=== PATIENT | female | born 1955 | race Asian ===

== ENCOUNTER 2022-09-12 23:45 | Inpatient (IN) | payer MEDICAID ==
[~2022-09-12] VITALS: Ht 144.8 cm; Wt 37.3 kg
[2022-09-13] MEDS ORDERED: IPRATROPIUM BROMIDE (0.02%) 0.5MG/2.5ML NEB HHN STA (00:03)
[2022-09-13] MEDS ORDERED: METHYLPREDNISOLONE SOD SUCC 125 MG/2 ML VIAL IV STA (00:03)
[2022-09-13] MEDS ORDERED: FUROSEMIDE 40MG/4ML VIAL IV ONE (00:15)
[2022-09-13] MEDS ORDERED: LORAZEPAM 2MG/ML CPJ IV ONE (00:15)
[2022-09-13] MEDS ORDERED: MAGNESIUM 2 G PREMIX 50 ML IV ONE (00:15)
[2022-09-13] MEDS: ALBUTEROL (0.083%) 2.5MG/3ML NEB HHN SCH (00:22)
[2022-09-13 00:34] LABS: BASOPHILS % 0.7 % (0.0-2.0); EOSINOPHILS % 5.8 % (0.0-5.0); HEMATOCRIT. 43.6 % (42.0-52.0); HEMOGLOBIN. 14.1 g/dL (14.0-18.0); LYMPHOCYTES % 46.7 % (20.0-50.0); MEAN CORPUSCULAR HEMOGLOBIN 30.4 pg (28.0-32.0); MEAN CORPUSCULAR VOLUME 94.4 fL (80.0-94.0); MEAN PLATELET VOLUME 9.2 fl (7.4-10.4); MONOCYTES % 6.6 % (2.0-8.0); NEUTROPHILS % 40.2 % (40.0-76.0); PLATELET 288 x1000/uL (130-400); RED BLOOD CELL COUNT 4.62 mill/uL (4.7-6.1); RED CELL DISTRIBUTION WIDTH 14.2 % (11.6-14.6)
[2022-09-13 00:47] LABS: BG BASE EXCESS -10.2 mmol/L (-2.0-2.0); BG CARBOXYHEMOGLOBIN 0.4 % (0.5-1.5); BG FRACTION INSPIRED OXYGEN 100; BG HCO3 ACT 18.5 mmol/L (22.0-26.0); BG METHEMOGLOBIN 0.5 % (0.0-1.5); BG OXYGEN SATURATION 93.9 % (92.0-98.5); BG OXYHEMOGLOBIN 93.1 % (94.0-97.0); BG PCO2 51.9 mmHg (35.0-45.0); BG PH 7.169 (7.350-7.450); BG PO2 83.8 mmHg (75.0-100.0); BG SAMPLE SITE RIGHT BRACHIAL; BG TOTAL HEMOGLOBIN 13.5 g/dL (12.0-18.0); BG TOTAL RESPIRATORY RATE 35 b/min; BG VENT MODE MASK - BIPAP
[2022-09-13] MEDS ORDERED: AZITHROMYCIN 500MG/250ML 250 ML IV ONE (01:00)
[2022-09-13] MEDS ORDERED: CEFTRIAXONE 1 G PREMIX 50 ML IV ONE (01:00)
[2022-09-13 01:57] LABS: CHLORIDE 110 mEq/L (98-107)
[2022-09-13] MEDS ORDERED: ENALAPRIL 2.5MG/2ML VIAL 2ML IV NR (05:30)
[2022-09-13] MEDS ORDERED: ENALAPRIL 1.25MG/ML VIAL 1ML IV NR (06:00)
[2022-09-13] MEDS ORDERED: HYDRALAZINE 20MG/ML VIAL IV SCH ×2 (08:00→08:15)
[2022-09-13] MEDS ORDERED: AMLODIPINE 10MG TABLET PO SCH (09:45)
[2022-09-13] MEDS ORDERED: ONDANSETRON HCL 4MG/2ML INJ IV PRN (09:45)
[2022-09-13] MEDS: METHYLPREDNISOLONE SOD SUCC 40 MG/ML VIAL IV SCH ×3 (10:56→21:38)
[2022-09-13] MEDS: IPRATROPIUM/ALBUTEROL 0.5-3(2.5)MG/3ML NEB HHN SCH ×2 (12:00→20:56)
[2022-09-13] MEDS ORDERED: NITROGLYCERIN 50MG PREMIX 250 ML IV PRN (12:15)
[2022-09-13] MEDS ORDERED: HYDRALAZINE HCL 100MG TABLET PO SCH (14:00)
[2022-09-13] MEDS: SPIRONOLACTONE 25MG TABLET PO SCH (14:19)
[2022-09-13] MEDS: ACETAMINOPHEN 325MG TABLET PO PRN (15:32)
[2022-09-13 17:52] VITALS: BP 129/28
[2022-09-13 17:54] VITALS: BP 129/28
[2022-09-13] MEDS: FUROSEMIDE 40MG/4ML VIAL IVP SCH (18:00)
[2022-09-13 20:00] VITALS: BP 130/82
[2022-09-13] MEDS: FAMOTIDINE 20MG TABLET PO SCH (21:38)
[2022-09-13] MEDS: AZITHROMYCIN 500 MG TABLET PO SCH (21:38)
[2022-09-13] MEDS: CEFTRIAXONE 1,000 MG in DEXTROSE 5% WATER 50 ML IV SCH (21:41)
[2022-09-13] MEDS ORDERED: MOME17SP11 INH (22:36)
[2022-09-13] MEDS ORDERED: OMEP40CA20 PO (22:36)
[2022-09-13] MEDS ORDERED: MONT-39 PO (22:36)
[2022-09-13] MEDS ORDERED: ALBUTEROL (22:36)
[2022-09-13] MEDS ORDERED: METO-539 PO (22:36)
[2022-09-13] MEDS ORDERED: LISI40TA13 PO (22:36)
[2022-09-13] MEDS ORDERED: LORA10TA7 PO (22:36)
[2022-09-13] MEDS ORDERED: CETI10TA6 PO (22:36)
[2022-09-13] MEDS ORDERED: BENZ100C86 PO (22:36)
[2022-09-13] MEDS ORDERED: LOSA100T32 PO (22:36)
[2022-09-13] MEDS ORDERED: ATOR20TA65 PO (22:36)
[2022-09-14] VITALS: BP 133/78
[2022-09-14] MEDS: IPRATROPIUM/ALBUTEROL 0.5-3(2.5)MG/3ML NEB HHN SCH ×6 (00:51→22:26)
[2022-09-14 04:00] VITALS: BP 134/75
[2022-09-14 06:06] LABS: HEMATOCRIT. 35.7 % (36.0-48.0); HEMOGLOBIN. 11.7 g/dL (12.0-16.0); MEAN CORPUSCULAR HEMOGLOBIN 29.8 pg (28.0-32.0); MEAN PLATELET VOLUME 9.1 fl (7.4-10.4); PLATELET 252 x1000/uL (130-400); RED BLOOD CELL COUNT 3.92 mill/uL (4.2-5.4); RED CELL DISTRIBUTION WIDTH 13.9 % (11.6-14.6)
[2022-09-14] MEDS: METHYLPREDNISOLONE SOD SUCC 40 MG/ML VIAL IV SCH ×3 (06:17→21:13)
[2022-09-14] MEDS: FUROSEMIDE 40MG/4ML VIAL IVP SCH (06:18)
[2022-09-14 08:00] VITALS: BP 122/68
[2022-09-14 08:59] LABS: CHLORIDE 105 mEq/L (98-107)
[2022-09-14 09:06] LABS: PHOSPHORUS 5.7 mg/dL (2.5-4.9)
[2022-09-14] MEDS: SPIRONOLACTONE 25MG TABLET PO SCH (09:06)
[2022-09-14 09:07] LABS: BG BASE EXCESS -4.5 mmol/L (-2.0-2.0); BG CARBOXYHEMOGLOBIN 0.9 % (0.5-1.5); BG DEOXYHEMOGLOBIN 2.2 % (0.0-5.0); BG FRACTION INSPIRED OXYGEN 32; BG HCO3 ACT 18.4 mmol/L (22.0-26.0); BG METHEMOGLOBIN 0.4 % (0.0-1.5); BG OXYGEN SATURATION 97.8 % (92.0-98.5); BG OXYHEMOGLOBIN 96.5 % (94.0-97.0); BG PCO2 28.3 mmHg (35.0-45.0); BG PH 7.432 (7.350-7.450); BG PO2 94.7 mmHg (75.0-100.0); BG SAMPLE SITE RIGHT RADIAL; BG TOTAL HEMOGLOBIN 12.9 g/dL (12.0-18.0); BG VENT MODE NASAL CANNULA
[2022-09-14 12:00] VITALS: BP 116/76
[2022-09-14 13:40] LABS: PLATELET ESTIMATE NORMAL
[2022-09-14 16:00] VITALS: BP 139/89
[2022-09-14 20:00] VITALS: BP 133/83
[2022-09-14] MEDS: GUAIFENESIN 600MG ER TABLET PO SCH (21:08)
[2022-09-14] MEDS: AZITHROMYCIN 500 MG TABLET PO SCH (21:08)
[2022-09-14] MEDS: FAMOTIDINE 20MG TABLET PO SCH (21:08)
[2022-09-14] MEDS: ACETAMINOPHEN 325MG TABLET PO PRN (21:09)
[2022-09-14] MEDS: CEFTRIAXONE 1,000 MG in DEXTROSE 5% WATER 50 ML IV SCH (21:13)
[2022-09-15] VITALS: BP 142/84
[2022-09-15] MEDS: IPRATROPIUM/ALBUTEROL 0.5-3(2.5)MG/3ML NEB HHN SCH ×5 (02:03→21:13)
[2022-09-15 04:00] VITALS: BP 138/84
[2022-09-15] MEDS: METHYLPREDNISOLONE SOD SUCC 40 MG/ML VIAL IV SCH (05:51)
[2022-09-15 06:49] LABS: HEMATOCRIT 37.8 % (36.0-48.0); HEMOGLOBIN 12.3 g/dL (12.0-16.0); MEAN CORPUSCULAR HEMOGLOBIN 29.6 pg (28.0-32.0); MEAN CORPUSCULAR VOLUME 91.1 fL (81.0-99.0); PLATELET 265 x1000/uL (130-400); RED BLOOD CELL COUNT 4.15 mill/uL (4.2-5.4); RED CELL DISTRIBUTION WIDTH 14.5 % (11.6-14.6)
[2022-09-15 08:00] VITALS: BP 137/86
[2022-09-15] MEDS: GUAIFENESIN 600MG ER TABLET PO SCH ×2 (08:31→20:10)
[2022-09-15] MEDS: SPIRONOLACTONE 25MG TABLET PO SCH (08:31)
[2022-09-15] MEDS ORDERED: FUROSEMIDE 20MG/2ML VIAL IVP SCH (09:00)
[2022-09-15 09:35] LABS: CHLORIDE 107 mEq/L (98-107); HDL CHOLESTEROL 59 mg/dL (40-59); LDL CHOLESTEROL 112 mg/dL (5-100); PHOSPHORUS 5.1 mg/dL (2.5-4.9)
[2022-09-15 12:00] VITALS: BP 125/76
[2022-09-15 16:00] VITALS: BP 124/83
[2022-09-15 20:00] VITALS: BP 146/77
[2022-09-15] MEDS ORDERED: PREDNISONE 20MG TABLET PO SCH ×2 (20:00)
[2022-09-15] MEDS: AZITHROMYCIN 500 MG TABLET PO SCH (20:09)
[2022-09-15] MEDS: FAMOTIDINE 20MG TABLET PO SCH (20:09)
[2022-09-15] MEDS: CEFTRIAXONE 1,000 MG in DEXTROSE 5% WATER 50 ML IV SCH (20:11)
[2022-09-16] VITALS: BP 118/76
[2022-09-16] MEDS: IPRATROPIUM/ALBUTEROL 0.5-3(2.5)MG/3ML NEB HHN SCH ×4 (01:28→21:45)
[2022-09-16] MEDS ORDERED: PREDNISONE 20MG TABLET PO SCH ×2 (02:00→08:00)
[2022-09-16 04:00] VITALS: BP 134/75
[2022-09-16 06:56] LABS: HEMATOCRIT 36.2 % (36.0-48.0); HEMOGLOBIN 11.8 g/dL (12.0-16.0); MEAN CORPUSCULAR VOLUME 91.6 fL (81.0-99.0); PLATELET 241 x1000/uL (130-400); RED BLOOD CELL COUNT 3.95 mill/uL (4.2-5.4); RED CELL DISTRIBUTION WIDTH 14.2 % (11.6-14.6)
[2022-09-16 07:10] LABS: CHLORIDE 105 mEq/L (98-107)
[2022-09-16 07:54] VITALS: BP 121/78
[2022-09-16] MEDS: SPIRONOLACTONE 25MG TABLET PO SCH (08:00)
[2022-09-16] MEDS ORDERED: DIPHENHYDRAMINE 50MG CAPSULE PO NR (08:00)
[2022-09-16] MEDS: GUAIFENESIN 600MG ER TABLET PO SCH ×2 (08:00→21:06)
[2022-09-16] MEDS: FUROSEMIDE 40MG TABLET PO SCH (08:06)
[2022-09-16 12:23] VITALS: BP 130/84
[2022-09-16 16:05] VITALS: BP 133/83
[2022-09-16] MEDS: CEFTRIAXONE 1,000 MG in DEXTROSE 5% WATER 50 ML IV SCH (21:06)
[2022-09-16] MEDS: FAMOTIDINE 20MG TABLET PO SCH (21:07)
[2022-09-16] MEDS: ATORVASTATIN CALCIUM 20MG TABLET PO SCH (21:07)
[2022-09-16] MEDS: AZITHROMYCIN 500 MG TABLET PO SCH (21:09)
[2022-09-17] VITALS: BP 142/87
[2022-09-17] MEDS: IPRATROPIUM/ALBUTEROL 0.5-3(2.5)MG/3ML NEB HHN SCH ×3 (02:23→20:55)
[2022-09-17 08:00] VITALS: BP 128/86
[2022-09-17] MEDS: FUROSEMIDE 40MG TABLET PO SCH (10:31)
[2022-09-17] MEDS: GUAIFENESIN 600MG ER TABLET PO SCH ×2 (10:32→20:50)
[2022-09-17] MEDS: ASPIRIN 81MG TABLET PO SCH (10:32)
[2022-09-17 11:57] LABS: HEMATOCRIT 43.3 % (36.0-48.0); HEMOGLOBIN 14.2 g/dL (12.0-16.0); MEAN CORPUSCULAR HEMOGLOBIN 29.9 pg (28.0-32.0); MEAN CORPUSCULAR VOLUME 91.5 fL (81.0-99.0); PLATELET 287 x1000/uL (130-400); RED BLOOD CELL COUNT 4.74 mill/uL (4.2-5.4)
[2022-09-17 12:00] VITALS: BP 135/89
[2022-09-17 12:24] LABS: CHLORIDE 102 mEq/L (98-107)
[2022-09-17 12:40] LABS: INR 1.1; PROTHROMBIN TIME 11.9 sec (9.6-11.0)
[2022-09-17 16:00] VITALS: BP 105/70
[2022-09-17 20:00] VITALS: BP 119/75
[2022-09-17] MEDS: FAMOTIDINE 20MG TABLET PO SCH (20:50)
[2022-09-17] MEDS: ATORVASTATIN CALCIUM 20MG TABLET PO SCH (20:50)
[2022-09-17] MEDS: AZITHROMYCIN 500 MG TABLET PO SCH (20:50)
[2022-09-17] MEDS: CEFTRIAXONE 1,000 MG in DEXTROSE 5% WATER 50 ML IV SCH (20:50)
[2022-09-18] VITALS (14 sets, daily range): BP systolic 124–157; BP diastolic 49–80
[2022-09-18] MEDS: IPRATROPIUM/ALBUTEROL 0.5-3(2.5)MG/3ML NEB HHN SCH ×2 (01:48→07:39)
[2022-09-18 08:24] LABS: EOSINOPHILS % 4.6 % (0.0-5.0); HEMATOCRIT. 44.5 % (36.0-48.0); HEMOGLOBIN. 14.6 g/dL (12.0-16.0); LYMPHOCYTES % 22.9 % (20.0-50.0); MEAN CORPUSCULAR HEMOGLOBIN 30.1 pg (28.0-32.0); MEAN CORPUSCULAR VOLUME 92.1 fL (81.0-99.0); MEAN PLATELET VOLUME 8.9 fl (7.4-10.4); MONOCYTES % 13.6 % (2.0-8.0); NEUTROPHILS % 58.9 % (40.0-76.0); PLATELET 271 x1000/uL (130-400); RED BLOOD CELL COUNT 4.83 mill/uL (4.2-5.4); RED CELL DISTRIBUTION WIDTH 13.9 % (11.6-14.6)
[2022-09-18] MEDS: ASPIRIN 81MG TABLET PO SCH (09:00)
[2022-09-18] MEDS: GUAIFENESIN 600MG ER TABLET PO SCH ×2 (09:00→20:39)
[2022-09-18] MEDS: FUROSEMIDE 40MG TABLET PO SCH ×2 (09:00→18:12)
[2022-09-18] MEDS ORDERED: LIDOCAINE HCL 1% 20ML VIAL (Pyxis) INJ ONE (09:45)
[2022-09-18] MEDS ORDERED: DIPHENHYDRAMINE 50MG/ML VIAL ONE (10:48)
[2022-09-18] MEDS ORDERED: IODIXANOL 320MG/ML 100 ML BOTTLE IV ONE (10:56)
[2022-09-18] MEDS ORDERED: FENTANYL CITRATE/PF 50MCG/ML 2ML VIAL ONE (10:58)
[2022-09-18] MEDS ORDERED: MIDAZOLAM HCL 2 MG/2 ML VIAL ONE (10:58)
[2022-09-18] MEDS ORDERED: HEPARIN 1000 UNITS/ML 10ML ONE (11:01)
[2022-09-18] MEDS ORDERED: HYDRALAZINE 20MG/ML VIAL ONE (11:09)
[2022-09-18] MEDS ORDERED: METOPROLOL TARTRATE 5MG/5ML VIAL IV ONE (11:14)
[2022-09-18 15:13] LABS: CHLORIDE 105 mEq/L (98-107)
[2022-09-18] MEDS: ATORVASTATIN CALCIUM 20MG TABLET PO SCH (20:38)
[2022-09-18] MEDS: FAMOTIDINE 20MG TABLET PO SCH (20:39)
[2022-09-19] VITALS (7 sets, daily range): BP systolic 117–184; BP diastolic 49–89
[2022-09-19] MEDS ORDERED: CLONIDINE 0.2MG TABLET PO PRN (00:30)
[2022-09-19] MEDS: IPRATROPIUM/ALBUTEROL 0.5-3(2.5)MG/3ML NEB HHN SCH ×4 (01:18→21:08)
[2022-09-19] MEDS: ASPIRIN 81MG TABLET PO SCH (08:11)
[2022-09-19] MEDS: GUAIFENESIN 600MG ER TABLET PO SCH ×2 (08:11→20:59)
[2022-09-19] MEDS: FUROSEMIDE 40MG TABLET PO SCH (08:12)
[2022-09-19] MEDS: FAMOTIDINE 20MG TABLET PO SCH (20:59)
[2022-09-19] MEDS: ATORVASTATIN CALCIUM 20MG TABLET PO SCH (20:59)
[2022-09-20] VITALS: BP 170/107
[2022-09-20] MEDS: IPRATROPIUM/ALBUTEROL 0.5-3(2.5)MG/3ML NEB HHN SCH ×3 (02:17→13:20)
[2022-09-20 04:00] VITALS: BP 150/79
[2022-09-20 07:02] LABS: BASOPHILS % 0.1 % (0.0-2.0); EOSINOPHILS % 2.6 % (0.0-5.0); HEMATOCRIT. 41.9 % (36.0-48.0); HEMOGLOBIN. 13.9 g/dL (12.0-16.0); LYMPHOCYTES % 13.2 % (20.0-50.0); MEAN CORPUSCULAR HEMOGLOBIN 30.1 pg (28.0-32.0); MEAN CORPUSCULAR VOLUME 90.7 fL (81.0-99.0); MEAN PLATELET VOLUME 8.5 fl (7.4-10.4); NEUTROPHILS % 73.1 % (40.0-76.0); PLATELET 262 x1000/uL (130-400); RED BLOOD CELL COUNT 4.62 mill/uL (4.2-5.4); RED CELL DISTRIBUTION WIDTH 13.6 % (11.6-14.6)
[2022-09-20 08:00] VITALS: BP 149/83
[2022-09-20] MEDS: FUROSEMIDE 40MG TABLET PO SCH (09:04)
[2022-09-20] MEDS: GUAIFENESIN 600MG ER TABLET PO SCH (09:04)
[2022-09-20] MEDS: ASPIRIN 81MG TABLET PO SCH (09:04)
[2022-09-20 12:00] VITALS: BP 130/67
[2022-09-20] MEDS ORDERED: FURO40TA5 PO (12:38)
[2022-09-20] MEDS ORDERED: ASPI-1160 PO (12:38)
[2022-09-20 13:00] VITALS: BP 130/67
== END 2022-09-20 15:20 | disposition home or self-care (01) | DRG 710 ==
LOC: ER 23:45 → MICUSO 09-13 00:58 → EDSEX 09-13 00:58 → EDBEDREQTM 09-13 01:00 → EDBEDREQ 09-13 01:00 → EDBEDREQSVC 09-13 13:46 → ENRESERV 09-13 16:29 → 7EST 09-13 18:20 → 3WST 09-18 15:26
PROVIDERS: ADMIT Internal Medicine; ATTEND Internal Medicine
PROC: 5A09357 Assistance with Respiratory Ventilation, Less than 24 Consecutive Hours, Continuous Positive Airway Pressure (ICD-10-PCS; 2022-09-10)
PROC: 027W3DZ Dilation of Thoracic Aorta, Descending with Intraluminal Device, Percutaneous Approach (ICD-10-PCS; principal; 2022-09-18)
DX: A41.9 Sepsis, unspecified organism (principal); I50.33 Acute on chronic diastolic (congestive) heart failure; N17.9 Acute kidney failure, unspecified; E87.29 Other acidosis; J96.01 Acute respiratory failure with hypoxia; J18.9 Pneumonia, unspecified organism; J96.02 Acute respiratory failure with hypercapnia; I11.0 Hypertensive heart disease with heart failure; Z20.822 Contact with and (suspected) exposure to COVID-19; I71.40 Abdominal aortic aneurysm, without rupture, unspecified; I16.1 Hypertensive emergency; E78.00 Pure hypercholesterolemia, unspecified; I35.0 Nonrheumatic aortic (valve) stenosis; Z88.8 Allergy status to other drugs, medicaments and biological substances; Z82.49 Family history of ischemic heart disease and other diseases of the circulatory system
CPT/HCPCS: 36415; 36600; 37236; 71045; 71250; 71275; 74174; 75605; 80048; 80053; 80061; 82375; 82805; 83036; 83605; 83735; 83880; 84100; 84145; 84484; 85025; 85027; 85347; 85379; 86850; 86900; 87070; 87426; 87804; 93005; 93306; 93970; 94640; 94660; 99285; C1760; C1769; C1887; C1893; J0360; J0456; J0696; J1200; J1644; J1940; J2060; J2250; J2920; J2930; J3010; J3475; J3490; J7060; J7512; Q0163; Q9967; C1761